=== PATIENT | female | born 1950 | race Caucasian/White ===

== ENCOUNTER 2024-08-04 11:21 | Outpatient (REF) | payer MEDICARE, OTHER, SELFPAY | END 2024-08-04 11:22 | disposition home or self-care (01) | LOC: LAB 11:21 | PROVIDERS: PCP Family Medicine; Visit Provider Internal Medicine | DX: E27.9 Disorder of adrenal gland, unspecified (principal) | CPT/HCPCS: 36415; 82530; 82570 ==

== ENCOUNTER 2024-09-08 19:38 | Outpatient (OUT) | payer MEDICARE, OTHER, SELFPAY | END 2024-09-08 19:39 | disposition home or self-care (01) | LOC: SLEEP 20:00 | PROVIDERS: PCP Nurse Practitioner Family; Visit Provider Nurse Practitioner Family | DX: G47.33 Obstructive sleep apnea (adult) (pediatric) (principal) | CPT/HCPCS: 95811 ==

== ENCOUNTER 2025-04-21 16:01 | Emergency (ER) | payer MEDICARE, SELFPAY ==
[2025-04-21] VITALS (52 sets, daily range): BP systolic 129–191; BP diastolic 46–109; PULSE 78–118; TEMP 37.1; O2SAT 91–100; BMI 44.8
--- NOTE | 2025-04-21 16:26 | ECG_ITS ---
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 Measurements Intervals [place] Rate: 111 P: -[phone] [place]: -92453 QRS: 164 QRSD: 76 T: 8 QT: 290 QTc: 355 Interpretive Statements JUNCTIONAL TACHYCARDIA INCOMPLETE RIGHT BUNDLE BRANCH BLOCK 3114 Cannot rule out anterior myocardial infarction, age undetermined 7300 Indeterminate axis 8102 Low QRS voltage in chest leads 8305 Short QTc interval 9150 abnormal ECG Compared to ECG 10/21/2017 06:41:55 Sinus rhythm no longer present Electronically Signed On 04-21-2025 18:14:59 EST by RYAN ARMENDARIZ M.D.
--- NOTE | 2025-04-21 16:27 | XR_ITS ---
The [address] [address] Patient Name: KENNY YAÑEZ MRN: [id number] date: 1950 Sex: F Assigned Patient Location: ED.MAIN Current Patient Location: ED.MAIN Accession/Order Number: [id number] Exam Date: 04/21/2025 17:00 Report Date: 04/21/2025 17:17 At the request of: JUVENAL DENNEY MD Procedure: XR chest 1V XR chest 1V 04/21/2025 5:10 PM SIGNS AND SYMPTOMS: Weakness PROTOCOL: Frontal radiograph of the chest COMPARISON: None FINDINGS: The trachea is midline. Atherosclerotic changes are present in the aortic arch. There is cardiomegaly with perihilar vascular prominence, interstitial prominence, and bilateral airspace opacities in a basal to apical gradient. The bony thorax is intact. Degenerative changes are noted in the shoulders and thoracic spine. XR/XR chest 1V IMPRESSION: Findings suggest congestive heart failure. Impression dictated by: Christopher Garcia M.D. 04/21/2025 5:17 PM Dictation Location: [place] [address] Electronically authenticated by: [id number] Y Date: 04/21/2025 17:17
--- NOTE | 2025-04-21 16:34 | ED.GENADUL1 ---
HPI HPI - General Adult General Chief complaint: Recheck/Abnormal Lab/Rx Stated complaint: VOMITING, LIGHT HEADED, 02 VERY LOW, RETAINING FLU Time Seen by Provider: 04/21/25 16:21 Source: patient Mode of arrival: walk-in Limitations: no limitations History of Present Illness HPI narrative: The patient is a 74-year-old female presented to the ER with a plaint of few days history of having lightheadedness , no appetite no nausea no vomiting at the moment although initially in triage she mentioned some nausea but right now she is saying that she have a great appetite, patient had no chest pain at any time but she does have increasing bilateral leg edema for the last few days No shortness of breath no coughing Mentioned that sometimes she feels that she is going to pass out and she have to be lowered to the floor when she is trying to move around Related Data Home Medications ?Medication ?Instructions ?Recorded ?Confirmed aspirin 81 mg capsule 81 mg PO DAILY 04/21/25 04/21/25 cholecalciferol (vitamin D3) 125 125 mcg PO DAILY 04/21/25 04/21/25 mcg (5,000 unit) capsule donepezil 10 mg tablet 10 mg PO .qhs 04/21/25 04/21/25 ferrous sulfate 325 mg (65 mg 325 mg PO DAILY 04/21/25 04/21/25 iron) tablet,delayed release losartan 100 1 tab PO DAILY 04/21/25 04/21/25 mg-hydrochlorothiazide 25 mg tablet mecobalamin-levomefolate 1 tab PO BID 04/21/25 04/21/25 calcium-pyridoxal phos 2 mg-3 mg-35 mg tablet metformin 500 mg tablet,extended 500 mg PO DAILY 04/21/25 04/21/25 release 24 hr omega 6-sxz-ork-fish oil 1,000 mg 1 cap PO DAILY 04/21/25 04/21/25 (120 mg-180 mg) capsule (Fish Oil) polyethylene glycol 3350 17 8.5 g PO .3 times per week PRN 04/21/25 04/21/25 gram/dose oral powder (ClearLax) constipation rivaroxaban 20 mg tablet (Xarelto) 20 mg PO Q24H 04/21/25 04/21/25 vitamin B12 1,000 mcg-folic acid tab sublingual 04/21/25 400 mcg sublingual tablet Allergies Allergy/AdvReac Type Severity Reaction Status Date / Time acetaminophen (From Percocet) Allergy Intermediate Vomiting Verified 04/21/25 16:08 oxycodone (From Percocet) Allergy Intermediate Vomiting Verified 04/21/25 16:08 Review of Systems ROS Status of ROS 10 or more systems reviewed and unremarkable except as noted in history and below [facility] Medical History (Updated 04/21/25 @ 18:33 by Nelly Barton MD) Hyperlipidemia ?E78.5 - Hyperlipidemia, unspecified (ICD-10) Hypertension ?I10 - Essential (primary) hypertension (ICD-10) Hip replacement planned Surgical History (Updated 04/21/25 @ 16:14 by Yaz Martinez RN) History of bowel resection ?Z90.49 - Acquired absence of other specified parts of digestive tract (ICD-10) Social History Little interest or pleasure in doing things: not at all Feeling down, depressed, or hopeless: not at all Exam Narrative Exam Narrative: Nurses notes and vital signs reviewed and patient is not hypoxic. General: Well-appearing and in no apparent distress. Skin: Warm, dry, no pallor noted. No rash. Head: Normocephalic, atraumatic. Neck: Supple, non-tender. Cardiovascular: Regular Rate and Rhythm without murmur, gallop or rub. Respiratory: No accessory muscle use or respiratory distress. Lungs decreased air entry bilaterally with distant breathing sound Musculoskeletal: normal ROM, no calf or popliteal tenderness, 1+ pitting edema bilaterally GI: Abdomen is soft, non-distended. Normal bowel sounds. No masses appreciated. No tenderness to palpation. No rebound, guarding, or rigidity noted. Neurological: A&O x4. No cranial nerve dysfunction observed. Constitutional Vital Signs, click to edit/add: Last Vital Signs Temp 98.7 F 04/21/25 16:08 Pulse 95 H 04/21/25 18:30 Resp 20 04/21/25 18:30 BP 151/74 H 04/21/25 16:31 Pulse Ox 96 04/21/25 18:30 O2 Del Method Room Air 04/21/25 16:08 Course Vital Signs Vital signs: Vital Signs Temperature 98.7 F 04/21/25 16:08 Pulse Rate 117 H 04/21/25 16:08 Respiratory Rate 18 04/21/25 16:08 Blood Pressure 133/71 04/21/25 16:08 Pulse Oximetry 97 04/21/25 16:08 Oxygen Delivery Method Room Air 04/21/25 16:08 Temperature 98.7 F 04/21/25 16:08 Pulse Rate 95 H 04/21/25 18:30 Respiratory Rate 20 04/21/25 18:30 Blood Pressure 151/74 H 04/21/25 16:31 Pulse Oximetry 96 04/21/25 18:30 Oxygen Delivery Method Room Air 04/21/25 16:08 Medical Decision Making [facility] Narrative Medical decision making narrative: EKG upon arrival was showing some ST changes was a concern initially for ST elevation although it is not typical of STEMI The patient had also some T wave inversion in multiple leads this ST elevation was mostly in lead II and I There was no chest pain recorded by the patient any time but the chest x-ray shows significant congestion Patient was noted to be tachycardic mild exertion with a heart rate of 117 and 111 The patient CBC showed no acute pathology except for mild leukocytosis of 14 and the chemistry was showing, BNP above 800 with no acute kidney injury It was noted that the lactic acid which I obtained because the patient episodic tachycardia on exertion was elevated but with the patient picture of acute congestive heart failure especially with the patient have no history of congestive heart failure before no concern right now for hydration right now the patient will be started to be diuresed with 20 of Lasix IV I did discuss the case with radiologist in [facility] and after discussing the results of the EKG he did recommend that the patient be transferred to [facility] for further cardiac workup The patient agreeable of this transfer Was noted that the patient takes Xarelto but she does not have any history of A-fib she does have a history of ischemic stroke The patient care discussed with Dr. Hennessy and he accepted the patient Lab Data Labs: Lab Results 04/21/25 04/21/25 Range/Units 16:32 18:05 WBC 14.5 H (4.0-11.0) 10^3/uL RBC 4.63 (4.20-5.40) 10^6/uL Hgb 14.2 (12.0-16.0) g/dL Hct 43.5 (36.0-48.0) % MCV 94.0 (81.0-99.0) fL MCH 30.7 (26.7-34.0) pg MCHC 32.6 (29.9-35.2) g/dL RDW 13.5 (11.0-15.0) % Plt Count 333 (150-450) 10^3/uL MPV 10.0 (9.5-13.5) fL Neut % (Auto) 76.0 H (43.0-75.0) % Lymph % (Auto) 13.1 L (20.5-60.0) % [place] % (Auto) 9.0 (1.7-12.0) % Eos % (Auto) 1.3 (0.9-7.0) % Baso % (Auto) 0.3 (0.2-2.0) % Neut # (Auto) 11.0 H (1.4-6.5) 10^3/uL Lymph # (Auto) 1.9 (1.2-3.8) 10^3/uL [place] # (Auto) 1.3 H (0.3-0.8) 10^3/uL Eos # (Auto) 0.2 (0.0-0.7) 10^3/uL Baso # (Auto) 0.1 (0.0-0.1) 10^3/uL Abs Immat Gran (auto) 0.05 H (0.00-0.03) 10^3/uL Imm/Tot Granulo (auto) 0.3 (0.0-0.5) % PT 14.0 H (9.0-11.6) sec INR 1.36 Sodium 137 (136-145) mmol/L Potassium 4.1 (3.5-5.1) mmol/L Chloride 102 (98-107) mmol/L Carbon Dioxide 29.9 (21.0-32.0) mmol/L Anion Gap 9.2 BUN 22.0 H (7.0-18.0) mg/dL Creatinine 1.03 H (0.55-1.02) mg/dL Est GFR ( Amer) >60 (>=60 mL/min/1.73m^2) Est GFR (Non-Af Amer) 52 L (>=60 mL/min/1.73m^2) BUN/Creatinine Ratio 21.4 Glucose 103 (74-106) mg/dL Lactate 3.1 H* (0.4-2.0) mmol/L Calcium 9.4 (8.5-10.1) mg/dL Magnesium 1.9 (1.8-2.4) mg/dL Total Bilirubin 0.3 (0.2-1.0) mg/dL AST 13 L (15-37) U/L ALT 22 (14-59) U/L Alkaline Phosphatase 91 (46-116) U/L Troponin I High Sens 15.6 (4.0-51.3) pg/mL NT-Pro-B Natriuret Pep 825.0 (<=1800.0) pg/mL Total Protein 7.4 (6.4-8.2) g/dL Albumin 3.4 (3.4-5.0) g/dL Globulin 4.0 g/dL Albumin/Globulin Ratio 0.9 Urine Color Lt. yellow (YELLOW) Urine Clarity Clear (CLEAR) Urine pH 6.0 (5.0-9.0) Ur Specific [place] 1.020 (1.005-1.025) Urine Protein Negative (NEG/TRACE) mg/dL Urine Glucose (UA) Negative (NEGATIVE) mg/dL Urine Ketones Negative (NEGATIVE) mg/dL Urine Occult Blood Small A (NEGATIVE) Urine Nitrite Positive A (NEGATIVE) Urine Bilirubin Negative (NEGATIVE) Urine Urobilinogen 0.2 (0.2-1.0) EU/dL Ur Leukocyte Esterase Small A (NEGATIVE) Urine RBC 0-2 (0-2) #/HPF Urine WBC 2-5 A (NONE SEEN) #/HPF Ur Squamous Epith Cells Few A (NONE/RARE) #/LPF Urine Crystals None seen (None Seen) #/HPF Urine Bacteria Moderate A (NONE SEEN) #/HPF Urine Casts None seen (NONE SEEN) #/LPF Urine Mucus None seen (NONE SEEN) Ur [place] [place] Chief Complaint: Recheck/Abnormal Lab/Rx Clinical Impression: Acute CHF (congestive heart failure), Pulmonary edema, Dizziness, Acute electrocardiogram changes, Leg edema Prescriptions / Home Meds: No Action Xarelto 20 mg tablet 20 mg PO Q24H metformin 500 mg tablet extended release 24 hr 500 mg PO DAILY mecobal-levomefolat Ca-B6 phos 2-3-35 mg tablet 1 tab PO BID donepezil 10 mg tablet 10 mg PO .qhs losartan-hydrochlorothiazide 100-25 mg tablet 1 tab PO DAILY ferrous sulfate 325 mg (65 mg iron) tablet,delayed release (DR/EC) 325 mg PO DAILY cholecalciferol (vitamin D3) 125 mcg (5,000 unit) capsule 125 mcg PO DAILY aspirin 81 mg capsule 81 mg PO DAILY vitamin J08-[id number] acid 1,000-400 mcg tablet, sublingual sublingual omega 6-xnn-hna-fish oil [Fish Oil] 1,000 (120-180) mg capsule 1 cap PO DAILY polyethylene glycol 3350 [ClearLax] 17 gram/dose powder 8.5 g PO .3 times per week PRN (Reason: constipation) Print Language: French Referrals: Loli Garcia NP [Primary Care Provider] - 1 week
[2025-04-21 16:43] LABS: Hematocrit 43.5 % (36.0-48.0); Hemoglobin 14.2 g/dL (12.0-16.0); Immature Granulocytes Abs Auto 0.05 10^3/uL (0.00-0.03); Immature Granulocytes Pct Auto 0.3 % (0.0-0.5); Lymphocytes Absolute Auto 1.9 10^3/uL (1.2-3.8); Mean Corpuscular HGB Conc 32.6 g/dL (29.9-35.2); Mean Corpuscular Hemoglobin 30.7 pg (26.7-34.0); Mean Corpuscular Volume 94.0 fL (81.0-99.0); Platelet Count 333 10^3/uL (150-450); Red Blood Count 4.63 10^6/uL (4.20-5.40); White Blood Count 14.5 10^3/uL (4.0-11.0)
[2025-04-21 16:53] LABS: Magnesium 1.9 mg/dL (1.8-2.4)
--- OUTSIDE RECORDS SUMMARY | 2025-04-21 16:54 | XMS_ITS | Clinical Summary ---
Author Organization [facility] Address [address] [place] [address] Care Team Providers Care Sales Account Executive Name Role Phone Miguel Ángel Sanderson MD Primary Care Provider [phone] Miguel Ángel Sanderson MD Unavailable [phone] Norah Aden RN Unavailable [phone] Allergies Active AllergyReactionsCriticalityNoted DateCommentsAcetaminophenGI intolerance 11/19/20240325Enyhvkfcb84/18/2025 Other Reaction(s): Nausea Oxycodone-AcetaminophenDizziness,Nausea Only,GI wmujcaffuql74/20/2016 Other Reaction(s): GI Upset, nausea, nausea, dizziness Other reaction(s): GI Upset Medications MedicationSigDispense QuantityRefillsLast FilledStart DateEnd DateStatus fish oil ([place]-3) 500 MG capsule Active aspirin 81 MG EC tablet 1 (one) time each day at the same timeActive Blood Glucose Monitoring Suppl (ONE TOUCH ULTRA 2) w/Device kit 02/28/2023ctive albuterol HFA 90 mcg/act inhaler Indications:Mild intermittent asthma without complication (HCC)Inhale 2 puffs every 4 (four) hours if needed for wheezing 18 g 11011/10/2023ctive ferrous sulfate 325 (65 Fe) MG EC tablet 05/04/2024ctive omeprazole (PriLOSEC) [address] capsule Take 40 mg by mouth04/28/2024ctive polyethylene glycol, PEG, 3350 (Miralax) 17 g packet Take by mouthActive ascorbic acid (Vitamin C) 500 MG ER capsule Take 500 mg by mouth DailyActive cyanocobalamin (Vitamin B-12) 1000 MCG tablet Take 1,000 mcg by mouth DailyActive donepezil (Aricept) 10 MG tablet Indications:Essential hypertensionTAKE 1 TABLET BY MOUTH EVERYDAY AT BEDTIME 90 tablet 5Active glucose blood test strip Indications:Type 2 diabetes mellitus without complication, without long-term current use of insulin (HCC)Use daily 100 each 1205//179942/6Active Lancets 30G misc Indications:Type 2 diabetes mellitus without complication, without long-term current use of insulin (HCC)1 each Daily in the Morning 100 each 3055Active losartan-hydroCHLOROthiazide (Hyzaar) 100-25 MG tablet Indications:Essential hypertensionTAKE 1 TABLET BY MOUTH EVERY DAY 90 tablet 5Active Additional Information Patient taking differently:1 tablet Oral Daily,(No times of day reported), Reported on 03/16/2025 cholecalciferol (Vitamin D-3) 125 MCG (5000 UT) capsule Indications:Hypovitaminosis DTAKE 1 CAPSULE BY MOUTH DAILY 90 capsule 5Active Additional Information Patient taking differently:125 mcg Oral Daily,(No times of day reported), Reported on 03/16/2025 rivaroxaban (Xarelto) 20 MG tablet Indications:Paroxysmal atrial fibrillation (HCC)TAKE 1 TABLET BY MOUTH EVERY DAY 90 tablet 5Active ipratropium-albuterol (Duo-Neb) 0.5-2.5 mg/3 mL nebulizer solution Indications:Panlobular emphysema (HCC)Take 3 mL by nebulization in the morning and 3 mL at noon and 3 mL in the evening and 3 mL before bedtime. 1080 mL /6Active fluocinonide (Lidex) 0.05 % external solution Indications:Other seborrheic dermatitisApply to affected areas on the scalp, once a day when flared, 30 day supply 60 mL tive hydrocortisone 2.5 % ointment Indications:Other seborrheic dermatitisApply thin layer to affected areas on the ears and face, twice a day as needed for flares, 30 day supply 20 g tive metFORMIN XR (Glucophage-XR) 500 MG 24 hr tablet Indications:Type 2 diabetes mellitus without complications (HCC)TAKE 1 TABLET BY MOUTH EVERY DAY WITH EVENING MEAL 90 tablet 5Active Active Problems ProblemNoted DateDiagnosed DateMass of satndid40/14/2025Chronic anticoagulation 11/15/2024Multiple thyroid /19/2025Chronic /28/2023Mass of colon11/29/2022cquired coagulation factor deficiency ([facility])10/01/2022 Asymmetrical sensorineural hearing loss10/01/2022ilateral primary osteoarthritis of knee10/01/20226076Gfpqtwbkarji46/30/2023Factor V Leiden ([facility]) 10/01/2022Idiopathic progressive lelrylahoeztwn49/30/2023Mild episode of recurrent major depressive fihkzcuk93/30/2023Mild intermittent asthma without wlkitxfnqcrv97/30/2023Onychomycosis due to dfucopptpfob81/30/2023OSA (obstructive sleep apnea)10/01/2022Osteoarthritis of knee10/01/2022Other chronic pain10/01/2022ain in right foot10/01/2022aroxysmal atrial fibrillation 10/01/2022ure jbavowqajaatmkkcmmgh19/30/2023Type 2 diabetes mellitus without complication, without long-term current use of ycffgkb3110/01/2022Uncompensated short term memory icugvdq4210/01/2022Shortness of otaefj7912/29/2020MI 45.0-49.9, adult08/10/2018Chronic fatigue gxhjtedo05/13/2019Cerebrovascular accident (CVA) due to thrombosis of left middle cerebral dtqrxb9703/10/2018Other hyperlipidemia 03/10/2018PAI-1 4G/5G /06/2018APC resistance ([facility])03/10/2018Status post placement of implantable loop /07/2018Acute embolic stroke 10/21/2017 Encounters DateTypeDepartmentCare HvhdPwndwjrusgr90/18/2025Patient Outreach [facility] [address] [place] [address] Norah Aden, RN 04/15/2025Patient Outreach [facility] [address] [place] [address] Norah Aden, RN 04/13/2025Telephone [facility] [address] [place] [address] Toño Zambrano, DO Gel Jqnxbhbmv74/10/2025Telephone [facility] [address] [place] [address] Toño Zambrano, DO 03/17/2025[facility]reach [facility] [address] [place] [phone] Norah Aden, YADIEL 03/16/2025 2:50 PM ESTOffice Visit [facility] [address] [place] [address] Lizet Mcgill PA Other seborrheic dermatitis (Primary Dx); Prurigo ojxhjlghh59/12/2025amboo flowsheet [facility] [address] [place] [address] Lizet Mcgill PA 03/16/20250618Bkxwce71/24/2025 10:45 AM EDTProcedure Visit [facility] [address] [place] [address] Aquilino Davey, DPKat Type 2 diabetes mellitus with diabetic neuropathy, without long-term current use of insulin (HCC) (Primary Dx); Itdbyshqwgdek54/24/2025amboo flowsheet [facility] [address] [place] [address] Aquilino Davey DPM 02/25/20257070Oktbct20/07/2025Patient Outreach [facility] [address] [place] [phone] Norah dAen, YADIEL 01/31/2025 8:30 AM EDTClinical Support [facility] [address] [facility] [address] [place] [address] Dustin, Petrona A, CCC-A Bilateral hearing loss, unspecified hearing loss type (Primary Dx)01/31/2025 Bamboo flowsheet [facility] [address] [place] [address] Petrona Chan CCC-A 01/29/2025Refill [facility] [address] [place] [address] Miguel Ángel Sanderson MD Type 2 diabetes mellitus without complications ([facility])01/24/2025 12:30 PM EDT Office Visit [facility] [address] [place] [address] Lizet Mcgill PA Other seborrheic dermatitis (Primary Dx)01/24/2025amboo flowsheet [facility] [address] [place] [address] Lizet Mcgill PA 01/24/2025Travelfrom Last 3 Months Immunizations ImmunizationAdministration DatesNext DueInfluenza Whole03/03/2007Influenza, High Dose Seasonal, Preservative Free02/04/2018Influenza, High-dose Seasonal, Quadrivalent, Preservative Free03/11/2023,03/19/2022,04/04/2021,04/05/2020, 03/08/2019Influenza, Recombinant, injectable, preservative free02/26/2024 Influenza, seasonal, injectable, preservative free01/28/2014Influenza, seasonal, intradermal, preservative free02/15/2016Moderna Bivalent Booster Vaccination 2Pneumococcal Conjugate PCV 1309Pneumococcal Conjugate PCV 20 4Pneumococcal Polysaccharide QVUI5559,01/07/20151276NXBW-YQG-9 (COVID-19) vaccine, mRNA, spike protein, LNP, PF, 50 mcg/0.5 mL03/11/2023 Family History Medical HistoryRelationNameCommentsHeart diseaseFatherHypertensionFatherHeart diseaseMotherHypertensionMotherDiabetesSiblingHypertensionSiblingStrokeSibling RelationNameStatusCommentsFatherDeceasedMaternal GrandfatherDeceasedMaternal GrandmotherDeceasedMotherDeceasedPaternal GrandfatherDeceasedPaternal GrandmotherDeceasedSiblingAliveSonAlive Social History Tobacco UseTypesPacks/DayYears UsedDateSmoking Tobacco: Every DayCigarettes Passive Smoke Exposure: CurrentSmokeless Tobacco: Never Tobacco Cessation:Ready to Q uit: Not Asked; Counseling Given: Not Answered Alcohol UseStandard Drinks/WeekCommentsNever0 (1 standard drink = 0.6 oz pure alcohol)caffeine: 2-3 cups per day coffeePHQ-2AnswerDate RecordedPatient Health Questionnaire-2 Vifkk167/24/2024CommentsNoSex and Gender Information ValueDate RecordedSex Assigned at BirthNot on fileLegal FsxHtyxnc59/15/2023 7:27 PM EDTGender IdentityNot on fileSexual OrientationNot on file Last Filed Vital Signs Vital SignReadingTime TakenCommentsBlood Zsbjdcsu937/6010 10:57 AM EDT Xwsjy32940/24/2025 10:57 AM LPTIjxyrinjvie93 ??C (98.6 ??F)01/14/2025 11:20 AM EDTRespiratory Jgil025607/27/2024 10:20 AM EDTOxygen Waemrkpejd17%01/14/2025 11:20 AM EDTInhaled Oxygen Concentration--Unyrkr241 kg (236 lb 3.2 oz)02/25/2025 10:57 AM QALKushbu271.5 cm (5' 2 )02/25/2025 10:57 AM EDTBody Mass Index43. 10:57 AM EDT Plan of Treatment DateTypeDepartmentCare Team (Latest Contact Info)Nansgythtpd66/23/2025 10:45 AM ESTOffice Visit [facility] [address] [facility] [place] [address] Toño Zambrano, DO [address] [place] [address] 05/09/2025 10:45 AM ESTOffice Visit [facility] [address] [place] [address] Miguel Ángel Sanderson MD [address] [place] [address] 05/10/2025 10:30 AM ESTProcedure Visit [facility] [address] [place] [address] Aquilino Davey, DPM [address] [place] [address] 07/26/2025 10:30 AM EDTOffice Visit [facility] [place] [facility] [address] [place] [address] Manuel Antoine MD [address] [place] [address] 03/20/2026 1:40 PM ESTOffice Visit [facility] [address] [place] [address] Lizet Mcgill, GERARDO [address] [place], [place] [address] Health MaintenanceDue DateLast DoneCommentsDiabetes: Hemoglobin A1C12/03/2024 09/02/2024, 06/03/2024, 02/26/2024, Additional history existsCOVID-19 Vaccine ( season), 03/19/2022, 08/08/2020, Additional history existsInfluenza Vaccine (#1), 03/11/2023, 03/19/2022, Additional history existsDiabetes: Urine Protein Tlenrkmlc05/16/2026 09/17/2024, 3Diabetes: Retinopathy Vcuuvosui33, 1913OavdbcwjhbvZckzxsycwmuu91/16/2014Colorectal Cancer Screening LpxncxqugrlcExrmlhmieItkrsgjtmomw05/27/2022, 04/06/2018, 03/31/2018Pneumococcal Vaccine: 65+ IvgyvJzgkgkfmy75/24/2024, 07/15/2018, 01/07/2015, Additional history existsCT ColonographyDiscontinuedFIT-DNADiscontinuedFITDiscontinuedFOBT DiscontinuedSigmoidoscopyDiscontinued Procedures Procedure NamePriorityDate/TimeAssociated DiagnosisCommentsCOLOR FUNDUS PHOTOGRAPHY - OU - BOTH LUTPRfgeutu34/29/2025 2:11 PM EDTMICROALBUMIN / CREATININE URINE EIHKGQruqzpy66/16/2025 8:30 AM EDT Type 2 diabetes mellitus without complication, without long-term current use of insulin ([facility]) POCT GLYCATED HEMOGLOBIN, ODOPQTkuuocm37/01/2025 12:39 PM EDT Type 2 diabetes mellitus without complication, without long-term current use of insulin ([facility]) BI MAMMOGRAM SCREENING TOMOSYNTHESIS SVXWRQWKSZcsbbln02/27/2022 12:00 PM EDT Essential (primary) hypertension Obstructive sleep apnea (adult) (pediatric) Morbid (severe) obesity due to excess calories ([facility]) Bilateral primary osteoarthritis of knee Body mass index (BMI) 45.0-49.9, adult ([facility]) Other amnesia Encounter for screening mammogram for malignant neoplasm of breast HMBKBJFMJYRNyuaszi94/16/2014 12:00 PM EDT from Last 3 Months or Most Recently Relevant to Health Maintenance Results * Color Fundus Photography - OU - Both Eyes (12/31/2024 2:11 PM EDT)Anatomical RegionLateralityModalityHeadFundus Photography Narrative Authorizing ProviderResult TypeResult StatusNoms Provider Unallocated MDOPH PHOTOGRAPHYFinal Result * Microalbumin / creatinine urine ratio (09/17/2024 8:30 AM EDT)ComponentValue Ref RangeTest MethodAnalysis TimePerformed AtPathologist SignatureCreat Ur92.3 Not Estab. mg/dLLABCORPAlbumin Ur5.1Not Estab. ug/mLLABCORPAlb/Creat Ratio Urine60 - 29 mg/g creatLABCORPComment: ? Normal: ?0 - ??29 ? Moderately increased: 30 - 300 Severely increased: >300 Specimen (Source)Anatomical Location / LateralityCollection Method / Volume Collection TimeReceived TimeUrineUrine specimen obtained by clean catch procedure / Ssxoyti1909/17/2024 8:30 AM EDT09/17/2024omment:URINE, CLEAN CATCH Narrative [facility] - 09/18/2024 8:35 AM EDT Performed at: [address] [place] [address] ??[phone] Denture Packer: Adria Chavez PhD, Phone: ??[phone] Authorizing ProviderResult TypeResult StatusPeter Mayra MATTHEW URINE ORDERABLESFinal ResultPerforming OrganizationAddressCity/State/[facility] CodePhone Number [facility] * POCT glycated hemoglobin, total docked device (09/02/2024 12:39 PM EDT) ComponentValueRef RangeTest MethodAnalysis TimePerformed AtPathologist SignatureHemoglobin A1C6.4Specimen (Source)Anatomical Location / Laterality Collection Method / VolumeCollection TimeReceived IihoMjobb79/01/2025 12:39 PM EDT Narrative Authorizing ProviderResult TypeResult StatusPeter Mayra Sanderson [facility] TEST ENTER/EDIT ORDERABLESFinal Result * Bilateral screening mammogram with tomosynthesis (10/29/2021 12:00 PM EDT) Anatomical RegionLateralityModalityBreastBilateralMammographySpecimen (Source) Anatomical Location / LateralityCollection Method / VolumeCollection Time Received Time Narrative 10/29/2021 12:00 PM EDT PERFORMED AT [facility] LOCATION:[id number] see report Procedure Note CONVERSION, GENERIC - 11/08/2022 PERFORMED AT [facility] LOCATION:[id number] see report Authorizing ProviderResult TypeResult StatusPeter Mayra Sanderson MDIMG BI PROCEDURES Final Result * Colonoscopy (01/18/2014 12:00 PM EDT)Anatomical RegionLateralityModality EndoscopySpecimen (Source)Anatomical Location / LateralityCollection Method / VolumeCollection TimeReceived Time01/18/2014 12:00 PM EDT Narrative 01/18/2014 12:00 PM EDT PERFORMED AT [facility] LOCATION:[id number] Polyps Procedure Note CONVERSION, GENERIC - 09/19/2022 PERFORMED AT [facility] LOCATION:[id number] Polyps Authorizing ProviderResult TypeResult StatusPeter Mayra Sanderson MDENDOSCOPY PROCEDURE ORDERABLESFinal Result from Last 3 Months or Most Recently Relevant to Health Maintenance Insurance Care Teams Team MemberRelationshipSpecialtyStart DateEnd Date Miguel Ángel Sanderson MD [address] [place] [address] [facility] - [facility]Family [facility] Miguel Ángel Sanderson MD [address] [place] [address] PCP - ACO [facility]07/04/23 Norah Aden RN [address] [place] [address] Registered NurseEmory University [facility]10/09/23
--- OUTSIDE RECORDS SUMMARY | 2025-04-21 16:54 | XMS_ITS | Encounter Summary ---
Author Organization [facility] Address [address] [facility] [place] [address] Care Team Providers Care Animal Control Specialist Name Role Phone Miguel Ángel Sanderson MD Primary Care Provider [phone] Miguel Ángel Sanderson MD Unavailable [phone] Norah Aden RN Unavailable [phone] Encounter Details DateTypeDepartmentCare Team (Latest Contact Info)Qykrovynndu93/10/2025Telephone [facility] [address] [place] [address] Toño Zambrano, [address] [place] [address] Social History Tobacco UseTypesPacks/DayYears UsedDateSmoking Tobacco: Every DayCigarettes Passive Smoke Exposure: CurrentSmokeless Tobacco: NeverAlcohol UseStandard Drinks/WeekCommentsNever0 (1 standard drink = 0.6 oz pure alcohol)caffeine: 2-3 cups per day coffeePHQ-2AnswerDate RecordedPatient Health Questionnaire-2 Score0 4CommentsNoSex and Gender InformationValueDate RecordedSex Assigned at BirthNot on fileLegal ZreOcsqhh04/15/2023 7:27 PM EDTGender Identity Not on fileSexual OrientationNot on filedocumented as of this encounter Miscellaneous Notes * Telephone Encounter - Dorina Smith - 04/13/2025 11:11 AM EST error documented in this encounter Plan of Treatment DateTypeDepartmentCare Team (Latest Contact Info)Qksnpsduhtj15/23/2025 10:45 AM ESTOffice Visit [facility] [place] [facility] [address] [address] Toño Zambrano, DO [address] [place] [address] 05/09/2025 10:45 AM ESTOffice Visit [facility] [address] [place] [address] Miguel Ángel Sanderson MD [address] [place] [address] 05/10/2025 10:30 AM ESTProcedure Visit [facility] [address] [place] [address] Aquilino Davey, DPM [address] [place], [place] [address] 07/26/2025 10:30 AM EDTOffice Visit [facility] [address] [place] [address] Manuel Antoine MD [address] [place] [address] 03/20/2026 1:40 PM ESTOffice Visit [facility] [address] [place] [address] Lizet Mcgill, PA [address] [place] [address] documented as of this encounter Visit Diagnoses Not on filedocumented in this encounter Additional Health Concerns AssessmentNoted TimePHQ-9 Depression Total Score: 8:00 AM EDT documented as of this encounter Care Teams Team MemberRelationshipSpecialtyStart DateEnd Date Miguel Ángel Sanderson MD [address] [place] [address] PCP - GeneralFacoly Medicine10/01/22 Miguel Ángel Sanderson MD [address] [place] [address] PCP - [facility]07/04/23 Norah Aden, YADIEL [address] [place] [address] Registered NurseFaguardian hospital Medicine10/09/23documented as of this encounter
--- OUTSIDE RECORDS SUMMARY | 2025-04-21 16:54 | XMS_ITS | Clinical Summary ---
Author Organization [facility] Address [id number] [address] [place] [address] Care Team Providers Care Supervisor Typesetting Name Role Phone Miguel Ángel Sanderson MD Primary Care Provider [phone] Allergies Active AllergyReactionsCriticalityNoted DateCommentsOxycodone-Acetaminophen Hpvath8908/23/2015 Other reaction(s): GI Upset Medications MedicationSigDispense QuantityRefillsLast FilledStart DateEnd DateStatus ALBUTEROL SULFATE INHL Inhale as needed.Active zidcx-6-fqj-uxu-tgl-autz oil 1,050-1,200 mg capsule Take 1 capsule by mouth.Active aspirin 81 mg Take 1 tablet (81 mg total) by mouth in the morning.Active XARELTO 20 mg tablet tablet TAKE 1 TABLET BY MOUTH EVERY DAY 30 tablet Active rfunlejip-L8-pgW71-algal oil (FOLTANX RF/MENTAX) 3 mg-35 mg-2 mg -90.314 mg capsule Take 1 capsule by mouth in the morning.Active donepeziL (ARICEPT) 5 mg tablet Take 1 tablet (5 mg total) by mouth nightly.Active losartan-hydroCHLOROthiazide (HYZAAR) 100-25 mg per tablet Take 1 tablet by mouth daily. 90 tablet ctive bisoprolol (ZEBETA) 5 mg tablet Indications:Paroxysmal atrial fibrillation (CMS-HCC),Essential hypertension, benignTAKE 1 TABLET BY MOUTH EVERY DAY 90 tablet ctive metFORMIN (GLUCOPHAGE) 500 mg tablet Take 1 tablet (500 mg total) by mouth in the morning and 1 tablet (500 mg total) before bedtime.Active acidophilus-pectin, citrus 25 million cell -100 mg tablet Take by mouth 3 (three) times a day with meals.Active Active Problems ProblemNoted DateDiagnosed DateShortness of kachhp711BMI 45.0-49.9, adult 08/10/2018Paroxysmal atrial pbznifmkaghy14/12/2018Status post placement of implantable loop lpfambdt41/07/2018Essential llvrtrjjqwav29/07/2018Observed sleep apnea12/09/2017Acute embolic rdjsjn0910/21/2017 Resolved Problems ProblemNoted DateDiagnosed DateResolved DateOther ukenogqyfgamyh62/07/2018 02/13/2018 Immunizations No known immunizations Family History Medical HistoryRelationNameCommentsNo Known ProblemsFatherNo Known Problems MotherRelationNameStatusCommentsFatherMother Social History Tobacco UseTypesPacks/DayYears UsedDateSmoking Tobacco: QneebrEehshobvxb5Qdtb: 10/21/2013Smokeless Tobacco: Never Tobacco Cessation:Counseling Given: Not Answered Alcohol UseStandard Drinks/WeekCommentsNo0 (1 standard drink = 0.6 oz pure alcohol)PHQ-2AnswerDate RecordedTotal Kmqcx270ChildcareAnswerDate UwspnkugOmcppkqubLlvaxjo23/06/2019EmploymentAnswerDate RecordedEmploymentUnknown 10/08/2018Hunger ScreeningAnswerDate RecordedWithin the past 12 months we worried whether our food would run out before we got money to buy more.Never True06/14/2022Within the past 12 months the food we bought just didn't last and we didn't have money to get more.Never True3Purpose - LifeAnswerDate RecordedPurpose and direction in ppywEttprhg12/13/2021CommentsNoSex and Gender InformationValueDate RecordedSex Assigned at BirthNot on fileLegal Sex Zunomx4710/21/2017 11:11 AM EDTGender IdentityNot on fileSexual OrientationNot on file Last Filed Vital Signs Vital SignReadingTime TakenCommentsBlood Qeibteyd688/6202 9:47 AM EST Eosdy780206/14/2022 9:47 AM KGEDemikmqqcde59.8 ??C (98.2 ??F)10/24/2017 7:59 PM EDTRespiratory Qpcv939410/24/2017 7:59 PM EDTOxygen Mylidvbusj79%06/14/2022 9:47 AM ESTInhaled Oxygen Concentration--Qquvcn340.5 kg (261 lb 4.8 oz)06/14/2022 9:47 AM GIPEittoc756 cm (5' 3 )06/14/2022 9:47 AM ESTBody Mass Index46.29 06/14/2022 9:47 AM EST Plan of Treatment Health MaintenanceDue DateLast DoneCommentsDepression Hzoubgzeu27/02/1961Tobacco Ytdistsbl57/02/1961TaP,Tdap and Td Vaccines (1 - Tdap)07/05/1967Zoster (Shingles) Vaccine (1 of 2)1998Fall Risk Mqeqsojpg83/02/2014RSV ( or age 60+ yrs) (1 - 1-dose 75+ series)4COVID-19 Vaccine (4 - 2024- season)5105/19/2021, 08/08/2020, 07/11/2020Influenza Fcmmhks1301/03/2025 03/19/2022, 04/04/2021, 04/05/2020, Additional history exists Medical Devices ImplantedTypeAreaManufacturerDevice IdentifierShelf Expiration DateModel / Serial / LotSys Crd Rvl Linq Rpl [id number] - [id number] - [id number] Implanted:Qty: 1 on 10/24/2017 [facility]Other ImplantMEDTRONIC CARD RHYTHM [id number]/30/2018LINQSYS / [id number] / Insurance Care Teams Team MemberRelationshipSpecialtyStart DateEnd Miguel Ángel Sanderson MD [facility]10/21/17
--- OUTSIDE RECORDS SUMMARY | 2025-04-21 16:54 | XMS_ITS | Clinical Summary ---
Author Organization [facility] Address [address] [place] [address] Care Team Providers Care Hardwood Floor Refinisher Name Role Phone Miguel Ángel Sanderson MD Primary Care Provider [phone] Hi Burr MD, PhD Unavailable [phone] Allergies Active AllergyReactionsCriticalityNoted DateCommentsOxycodone-AcetaminophenGI Upset08/23/2015 Medications MedicationSigDispense QuantityRefillsLast FilledStart DateEnd DateStatus Maud-3 1,050 mg, Fish Oil, 1,050-1,200 mg cap Take 1 capsule by mouth twice daily.Active ipratropium-albuterol (DUONEB) 0.5 mg-3 mg(2.5 mg base)/3 mL nebu Inhale 3 mL as instructed.Active ALBUTEROL SULFATE (PROAIR HFA INHALATION) Inhale as instructed.Active aspirin, enteric coated (ASPIRIN, ENTERIC COATED) 81 mg EC tablet Take 81 mg by mouth.Active albuterol HFA (PROVENTIL HFA) 90 mcg/actuation inhaler Inhale as instructed.Active atorvastatin (LIPITOR) 40 mg tablet Take 40 mg by mouth.Active bisoprolol (ZEBETA) 5 mg tablet Take 5 mg by mouth.02/13/2018Active rivaroxaban (XARELTO) 20 mg tablet Take 20 mg by mouth.02/13/2018Active losartan-hydrochlorothiazide (HYZAAR) 50-12.5 mg per tablet Take 1 tablet by mouth once daily. 09/15/2018Active donepezil (ARICEPT) 5 mg tablet TAKE 1 TABLET BY MOUTH EVERY DAY IN THE IVADSDU0809/10/2019Active Active Problems ProblemNoted DateDiagnosed DatePAI-1 4G/5G pkeqrxcb72/06/2018APC resistance 11/06/2018Cerebrovascular accident (CVA) due to thrombosis of left middle cerebral shsnxa5703/10/2018Paroxysmal atrial ozovfrpmllzh57/06/2018Essential ttmwqqsydpfq04/06/2018Other qvstisxhzvpwrs81/06/2018 Social History Tobacco UseTypesPacks/DayYears UsedDateSmoking Tobacco: ElaclwNzwjrorknx504 03/24/1980 - 03/24/2014Smokeless Tobacco: NeverAlcohol UseStandard Drinks/Week CommentsNo0 (1 standard drink = 0.6 oz pure alcohol)PHQ-2AnswerDate RecordedPHQ- 2 jzfro618Area Deprivation IndexAnswerDate RecordedNational Score (1- 100), lower number is lower riskNot on file04/12/2020State Score (1-10), lower number is lower riskNot on file04/12/2020Data from: https://www.neighborhoodatlas.medicine[facility].edu/. Last address used for calculationNot on file04/12/2020CommentsNoSex and Gender Information ValueDate RecordedSex Assigned at BirthNot on fileLegal UgpMtzjmv53/30/2014 11:33 AM EDTGender IdentityNot on fileSexual OrientationNot on file Last Filed Vital Signs Vital SignReadingTime TakenCommentsBlood Ibursyee694/75010/11/2019 2:41 PM EDT Xtqee96972/08/2020 2:41 PM ONJQmwklpjozdr75.5 ??C (97.7 ??F)10/11/2019 2:41 PM EDTRespiratory Qebo875810/11/2019 2:41 PM EDTOxygen Uzzslculbi14%10/11/2019 2:41 PM EDTInhaled Oxygen Concentration--Jtgtzc980.4 kg (245 lb 9.6 oz)10/11/2019 2:41 PM PBGFumjlp935.5 cm (5' 1.61 )10/11/2019 2:41 PM EDTBody Mass Index45.49 10/11/2019 2:41 PM EDT Plan of Treatment Health MaintenanceDue DateLast DoneCommentsAnxiety Jwqqxapia71/02/1967Depression Kzhhaqsxj24/02/1967Hepatitis C Lmbhbenuf67/02/1967DTaP,Tdap,Td Vaccine (1 - Tdap)07/05/1967Pneumococcal Vaccine: 50+ (1 of 1 - PCV)1998Shingrix Vaccine (1 of 2)1998Bone Density Lgkrtgjgc81/02/2014Diabetes Screening 2106/07/2018, 10/24/2017, 10/23/2017, Additional history existsRSV Vaccine (1 - 1-dose 75+ series)07/05/2023dvance Directive Laaqsilydt33/01/2025 Covid-19 Vaccine (1 - 2024- season)2025Influenza Vaccine (#1)2025 Insurance Care Teams Team MemberRelationshipSpecialtyStart DateEnd Date Miguel Ángel Sanderson MD PCP - GeneralFamily Medicine02/01/14 Hi Burr MD, PhD Primary Staff PhysicianCardiology07/21/18
--- OUTSIDE RECORDS SUMMARY | 2025-04-21 16:54 | XMS_ITS | Clinical Summary ---
Author Organization [facility] Address [address] [place] [address] Care Team Providers Care Light Bulb Tester Name Role Phone Unavailable Primary Care Provider Unavailabl e Social History Tobacco UseTypesPacks/DayYears UsedDateSmoking Tobacco: Never Assessed CommentsUnknownSex and Gender InformationValueDate RecordedSex Assigned at Not on fileLegal YviEwiubn28/26/2018 3:08 PM EDTGender IdentityNot on fileSexual OrientationNot on file Plan of Treatment Not on file
--- OUTSIDE RECORDS SUMMARY | 2025-04-21 16:54 | XMS_ITS | Encounter Summary ---
Author Organization [facility] Address [address] [place] [address] Care Team Providers Care Nurses Director Name Role Phone Miguel Ángel Sanderson MD Primary Care Provider Miguel Ángel Sanderson MD Unavailable [phone] Norah Aden RN Unavailable [phone] Encounter Details DateTypeDepartmentCare Team (Latest Contact Info)Qdjlmyitwfy11/18/2025Patient Outreach [facility] [address] [place] [address] Norah Aden, YADIEL [address] [place] [address] Social History Tobacco UseTypesPacks/DayYears UsedDateSmoking Tobacco: Every DayCigarettes Passive Smoke Exposure: CurrentSmokeless Tobacco: NeverAlcohol UseStandard Drinks/WeekCommentsNever0 (1 standard drink = 0.6 oz pure alcohol)caffeine: 2-3 cups per day coffeePHQ-2AnswerDate RecordedPatient Health Questionnaire-2 Score0 4CommentsNoSex and Gender InformationValueDate RecordedSex Assigned at BirthNot on fileLegal KkcLoboxy76/15/2023 7:27 PM EDTGender Identity Not on fileSexual OrientationNot on filedocumented as of this encounter Progress Notes * Norah Aden RN - 04/21/2025 1:40 PM EST VM received from ABHINAV Almazan. Reports she is seeing some changes in pt and attempted to get an apptwith provider, but nothing available. She is concerned with pt change in status, having increased HR, more sob, lower leg edema and sustained a fall yesterday while visiting her sister. Denies any injury with fall, but she is reporting noted increased weakness. Her BP is also a concern, low today 94/56. Advised likely an ER evaluation needed. CG Norah reports that is what the family wants, shespoke with dtr prior to magazine writer returning call. She will update when available. documented in this encounter Plan of Treatment DateTypeDepartmentCare Team (Latest Contact Info)Pscgoxplzoy85/23/2025 10:45 AM ESTOffice Visit [facility] [address] [place] [phone] Toño Zambrano, DO [address] [place] [address] 05/09/2025 10:45 AM ESTOffice Visit [facility] [address] [place] [phone] Miguel Ángel Sanderson MD [address] [place] [address] 05/10/2025 10:30 AM ESTProcedure Visit [facility] [address] [place] [phone] Aquilino Davey DPM [address] [place] [address] 07/26/2025 10:30 AM EDTOffice Visit [facility] [address] [place] [phone] Manuel Antoine MD [address] [place] [address] 03/20/2026 1:40 PM ESTOffice Visit [facility] [address] [place] [address] Lizet Mcgill, PA [address] [place] [address] documented as of this encounter Visit Diagnoses Diagnosis Type 2 diabetes mellitus without complication, without long-term current use of insulin (HCC)- Primary Cerebrovascular accident (CVA) due to thrombosis of left middle cerebral artery (HCC) Acute bilateral knee pain- Primary Primary osteoarthritis of both knees documented in this encounter Additional Health Concerns AssessmentNoted TimePHQ-9 Depression Total Score: 8:00 AM EDT documented as of this encounter Care Teams Team MemberRelationshipSpecialtyStart DateEnd Date Miguel Ángel Sanderson MD [address] [place] [address] PCP - GeneralFamily Medicine10/01/22 Miguel Ángel Sanderson MD [address] [place] [address] PCP - [facility]07/04/23 Norah Aden, [place]ADIEL [address] [place] [address] Registered NurseFamily Medicine10/09/23documented as of this encounter
--- OUTSIDE RECORDS SUMMARY | 2025-04-21 16:54 | XMS_ITS | Encounter Summary ---
Author Organization [facility] Address [address] [place] [address] Care Team Providers Care Patient Information Coordinator Name Role Phone Miguel Ángel Sanderson MD Primary Care Provider Miguel Ángel Sanderson MD Unavailable [phone] Norah Aden RN Unavailable Reason for Visit * ReasonOnset DateCommentsGel Hspjneknr74/10/2025 Encounter Details DateTypeDepartmentCare Team (Latest Contact Info)Sgemlvpguue64/10/2025Telephone [facility] [address] [place] [address] Toño Zambrano, DO [address] [place] [address] Gel Injection Social History Tobacco UseTypesPacks/DayYears UsedDateSmoking Tobacco: Every DayCigarettes Passive Smoke Exposure: CurrentSmokeless Tobacco: NeverAlcohol UseStandard Drinks/WeekCommentsNever0 (1 standard drink = 0.6 oz pure alcohol)caffeine: 2-3 cups per day coffeePHQ-2AnswerDate RecordedPatient Health Questionnaire-2 Score0 4CommentsNoSex and Gender InformationValueDate RecordedSex Assigned at BirthNot on fileLegal VsdCpmjfq85/15/2023 7:27 PM EDTGender Identity Not on fileSexual OrientationNot on filedocumented as of this encounter Miscellaneous Notes * Telephone Encounter - Stephanie Duque MA - 04/13/2025 2:01 PM EST Okay to start gel auth for patient. * Telephone Encounter - Dorina Smith - 04/13/2025 10:16 AM EST Patient home health nurse called and stated that the patient is in a lot of pain and would like to get gel injections started. She has an appointment on 04/26/25 for a mariel injection, but if gel injections get approved before then she would like to switch to that. FRANKY/XR/Mariel: 12/21/24 Last gel injection (gelone) : 01/2024 Dr Zambrano Patient B/L Knee OA documented in this encounter Plan of Treatment DateTypeDepartmentCare Team (Latest Contact Info)Mygrmrjmvnh02/23/2025 10:45 AM ESTOffice Visit [facility] [address] [place] [phone] Toño Zambrano, [address] [place] [address] 05/09/2025 10:45 AM ESTOffice Visit [facility] [address] [place] [phone] Miguel Ángel Sanderson MD [address] [place] [address] 05/10/2025 10:30 AM ESTProcedure Visit [facility] [address] [place] [address] Aquilino Davey DPM [address] [place] [address] 07/26/2025 10:30 AM EDTOffice Visit [facility] [address] [place] [address] Manuel Antoine MD [address] [place] [address] 03/20/2026 1:40 PM ESTOffice Visit [facility] [address] [place] [address] Lizet Mcgill, PA [address] [place] [address] documented as of this encounter Visit Diagnoses Not on filedocumented in this encounter Additional Health Concerns AssessmentNoted TimePHQ-9 Depression Total Score: 8:00 AM EDT documented as of this encounter Care Teams Team MemberRelationshipSpecialtyStart DateEnd Date Miguel Ángel Sanderson MD [address] [place] [address] PCP - GeneralFamily Medicine10/01/22 Miguel Ángel Sanderson MD [address] [place] [address] PCP - [facility]07/04/23 Norah Aden, RN [address] [place] [address] Registered NurseFamily Medicine10/09/23documented as of this encounter
--- OUTSIDE RECORDS SUMMARY | 2025-04-21 16:54 | XMS_ITS | Encounter Summary ---
Author Organization [facility] Address [address] [place] [address] Care Team Providers Care Utilization Review Rn Name Role Phone Miguel Ángel Sanderson MD Primary Care Provider Miguel Ángel Sanderson MD Unavailable [phone] Norah Aden RN Unavailable [phone] Encounter Details DateTypeDepartmentCare Team (Latest Contact Info)Zjfxggumdfg53/12/2025Patient Outreach [facility] [address] [place] [address] Norah Aden, YADIEL [address] [place] [address] Social History Tobacco UseTypesPacks/DayYears UsedDateSmoking Tobacco: Every DayCigarettes Passive Smoke Exposure: CurrentSmokeless Tobacco: NeverAlcohol UseStandard Drinks/WeekCommentsNever0 (1 standard drink = 0.6 oz pure alcohol)caffeine: 2-3 cups per day coffeePHQ-2AnswerDate RecordedPatient Health Questionnaire-2 Score0 4CommentsNoSex and Gender InformationValueDate RecordedSex Assigned at BirthNot on fileLegal JtbBjxcxs42/15/2023 7:27 PM EDTGender Identity Not on fileSexual OrientationNot on filedocumented as of this encounter Progress Notes * Norah Aden RN - 04/15/2025 9:09 AM EST Monthly monitor, chart reviewed. FRANKY 01/14/25 05/09/24 CG, Norah, on pt HIPAA with pt in home, returns call to check writer salesperson. Check on current status, management of chronic conditions. Contact was made with Ortho office re: increased pain in bilat knees and request for gel injectionsat 04/26/25 Pt having more difficulty with ambulation and movement when CG not in home, d/t increased pain causing mobility limitations. Plan is if insurance does not approve before scheduled appt they will do the regular cortisone injections and then return in 30 days for the gel injections. She had an appt scheduled with Dr. Sanderson on 04/14 but had to cancel d/t having no help to assist in getting pt into car. Pt has had no issues with BS, numbers have been really good . No skin issues at this time. Denies any acute issues. Aware to call if any needs arise. documented in this encounter Plan of Treatment DateTypeDepartmentCare Team (Latest Contact Info)Tcsjflnzfly36/23/2025 10:45 AM ESTOffice Visit [facility] [address] [place] [phone] Toño Zambrano, [address] [place] [address] 05/09/2025 10:45 AM ESTOffice Visit [facility] [address] [place] [phone] Miguel Ángel Sanderson MD [address] [place] [address] 05/10/2025 10:30 AM ESTProcedure Visit [facility] [address] [place] [phone] Aquilino Davey DPM [address] [place] [address] 07/26/2025 10:30 AM EDTOffice Visit [facility] [address] [place] [address] Manuel Antoine MD [address] [place] [address] 03/20/2026 1:40 PM ESTOffice Visit [facility] [address] [place] [address] Lizet Mcgill, GERARDO [address] [place] [address] documented as of this encounter Visit Diagnoses [...] Ángel Sanderson MD [address] [place] [address] PCP - GeneralFamily Medicine10/01/22 Miguel Ángel Sanderson MD [address] [place] [address] PCP - [facility]07/04/23 Norah Aden, YADIEL [address] [place] [address] Registered NurseFamily Medicine10/09/23documented as of this encounter
[2025-04-21 16:57] LABS: INR 1.36; Prothrombin Time 14.0 sec (9.0-11.6)
--- NOTE | 2025-04-21 17:00 | ECG_ITS ---
[facility] Test Date: 2025-04-21 Pat Name: KENNY YAÑEZ Department: Room: - Gender: Female Inside Sales Administrator: : [id number] Requested By: [id number] Order Number: [id number] Key MD: RYAN ARMENDARIZ M.D. Measurements Intervals [place] Rate: 111 P: -[address] [place]: -[address] QRS: 157 QRSD: 72 T: 16 QT: 300 QTc: 366 Interpretive Statements JUNCTIONAL TACHYCARDIA INCOMPLETE RIGHT BUNDLE BRANCH BLOCK 3114 Cannot rule out anterior myocardial infarction, age undetermined 7300 Indeterminate axis 8102 Low QRS voltage in chest leads 9150 abnormal ECG Compared to ECG 04/21/2025 16:31:15 No significant changes Electronically Signed On 04-21-2025 18:16:28 EST by RYAN ARMENDARIZ M.D.
[2025-04-21 17:03] LABS: Alanine Aminotransferase 22 U/L (14-59); Albumin Globulin Ratio 0.9; Albumin Level 3.4 g/dL (3.4-5.0); Alkaline Phosphatase 91 U/L (46-116); Anion Gap 9.2; Aspartate Amino Transferase 13 U/L (15-37); Blood Urea Nitrogen 22.0 mg/dL (7.0-18.0); Calcium 9.4 mg/dL (8.5-10.1); Carbon Dioxide 29.9 mmol/L (21.0-32.0); Chloride 102 mmol/L (98-107); Estimated GFR (African America >60 (>=60 mL/min/1.73m^2); Estimated GFR (Non-African Ame 52 (>=60 mL/min/1.73m^2); Globulin 4.0 g/dL; Glucose 103 mg/dL (74-106); Potassium 4.1 mmol/L (3.5-5.1); Sodium 137 mmol/L (136-145); Total Protein 7.4 g/dL (6.4-8.2)
[2025-04-21 17:04] LABS: Lactate/Lactic Acid 3.1 mmol/L (0.4-2.0)
[2025-04-21 17:28] LABS: NT Pro B Type Natriuretic Pept 825.0 pg/mL (<=1800.0)
[2025-04-21 18:10] LABS: Glucose Urine UA NEGATIVE (NEGATIVE)
[2025-04-21 18:18] LABS: Cast Seen? NONE SEEN #/LPF (NONE SEEN); Crystals Seen? None Seen #/HPF (None Seen)
[2025-04-21 18:19] LABS: Urine Culture Indicated YES-FRMC
[2025-04-21] MEDS: FUROSEMIDE 20 MG/2 ML VIAL IVP (18:49)
[2025-04-21] MEDS: PIPERACILLIN SODIUM/TAZOBACTAM 4.5 GM in 0.9 % SODIUM CHLORIDE 50 ML IV (19:07)
[2025-04-21 21:16] LABS: Lactate/Lactic Acid 2.6 mmol/L (0.4-2.0)
--- NOTE | 2025-04-21 22:52 | ED.GENADUL1 ---
HPI HPI - General Adult General Chief complaint: Recheck/Abnormal Lab/Rx Stated complaint: VOMITING, LIGHT HEADED, 02 VERY LOW, RETAINING FLU Time Seen by Provider: 04/21/25 16:21 Source: patient Mode of arrival: walk-in Limitations: no limitations History of Present Illness HPI narrative: This 74-year-old female was awaiting transfer at shift change. She remains awake alert in emergency department. Repeat EKG shows undetermined rhythm at 84 bpm. This was compared to prior EKGs and is unchanged. She remains hemodynamically stable in the emergency department. Her lactic acid was repeated and was 2.6. Initial and delta troponin were both normal. Related Data Home Medications ?Medication ?Instructions ?Recorded ?Confirmed aspirin 81 mg capsule 81 mg PO DAILY 04/21/25 04/21/25 cholecalciferol (vitamin D3) 125 125 mcg PO DAILY 04/21/25 04/21/25 mcg (5,000 unit) capsule donepezil 10 mg tablet 10 mg PO .qhs 04/21/25 04/21/25 ferrous sulfate 325 mg (65 mg 325 mg PO DAILY 04/21/25 04/21/25 iron) tablet,delayed release losartan 100 1 tab PO DAILY 04/21/25 04/21/25 mg-hydrochlorothiazide 25 mg tablet mecobalamin-levomefolate 1 tab PO BID 04/21/25 04/21/25 calcium-pyridoxal phos 2 mg-3 mg-35 mg tablet metformin 500 mg tablet,extended 500 mg PO DAILY 04/21/25 04/21/25 release 24 hr omega 4-xyq-xkc-fish oil 1,000 mg 1 cap PO DAILY 04/21/25 04/21/25 (120 mg-180 mg) capsule (Fish Oil) polyethylene glycol 3350 17 8.5 g PO .3 times per week PRN 04/21/25 04/21/25 gram/dose oral powder (ClearLax) constipation rivaroxaban 20 mg tablet (Xarelto) 20 mg PO Q24H 04/21/25 04/21/25 vitamin B12 1,000 mcg-folic acid tab sublingual 04/21/25 400 mcg sublingual tablet Allergies Allergy/AdvReac Type Severity Reaction Status Date / Time acetaminophen (From Percocet) Allergy Intermediate Vomiting Verified 04/21/25 16:08 oxycodone (From Percocet) Allergy Intermediate Vomiting Verified 04/21/25 16:08 [facility] Medical History (Updated 04/21/25 @ 18:33 by Nelly Barton MD) Hyperlipidemia ?E78.5 - Hyperlipidemia, unspecified (ICD-10) Hypertension ?I10 - Essential (primary) hypertension (ICD-10) Hip replacement planned Surgical History (Updated 04/21/25 @ 16:14 by Yaz Martinez RN) History of bowel resection ?Z90.49 - Acquired absence of other specified parts of digestive tract (ICD-10) Social History Little interest or pleasure in doing things: not at all Feeling down, depressed, or hopeless: not at all Exam Constitutional Vital Signs, click to edit/add: Last Vital Signs Temp 98.7 F 04/21/25 16:08 Pulse 95 H 04/21/25 18:30 Resp 20 04/21/25 18:30 BP 151/74 H 04/21/25 16:31 Pulse Ox 96 04/21/25 18:30 O2 Del Method Room Air 04/21/25 16:08 Course Vital Signs Vital signs: Vital Signs Temperature 98.7 F 04/21/25 16:08 Pulse Rate 117 H 04/21/25 16:08 Respiratory Rate 18 04/21/25 16:08 Blood Pressure 133/71 04/21/25 16:08 Pulse Oximetry 97 04/21/25 16:08 Oxygen Delivery Method Room Air 04/21/25 16:08 Temperature 98.7 F 04/21/25 16:08 Pulse Rate 95 H 04/21/25 18:30 Respiratory Rate 20 04/21/25 18:30 Blood Pressure 151/74 H 04/21/25 16:31 Pulse Oximetry 96 04/21/25 18:30 Oxygen Delivery Method Room Air 04/21/25 16:08 Medical Decision Making Medical Records Medical records reviewed: Yes I reviewed the patient's medical records Lab Data Lab results reviewed: Yes I reviewed the patient's lab results Labs: Lab Results 04/21/25 04/21/25 04/21/25 Range/Units 16:32 18:05 18:43 WBC 14.5 H (4.0-11.0) 10^3/uL RBC 4.63 (4.20-5.40) 10^6/uL Hgb 14.2 (12.0-16.0) g/dL Hct 43.5 (36.0-48.0) % MCV 94.0 (81.0-99.0) fL MCH 30.7 (26.7-34.0) pg MCHC 32.6 (29.9-35.2) g/dL RDW 13.5 (11.0-15.0) % Plt Count 333 (150-450) 10^3/uL MPV 10.0 (9.5-13.5) fL Neut % (Auto) 76.0 H (43.0-75.0) % Lymph % (Auto) 13.1 L (20.5-60.0) % [place] % (Auto) 9.0 (1.7-12.0) % Eos % (Auto) 1.3 (0.9-7.0) % Baso % (Auto) 0.3 (0.2-2.0) % Neut # (Auto) 11.0 H (1.4-6.5) 10^3/uL Lymph # (Auto) 1.9 (1.2-3.8) 10^3/uL [place] # (Auto) 1.3 H (0.3-0.8) 10^3/uL Eos # (Auto) 0.2 (0.0-0.7) 10^3/uL Baso # (Auto) 0.1 (0.0-0.1) 10^3/uL Abs Immat Gran (auto) 0.05 H (0.00-0.03) 10^3/uL Imm/Tot Granulo (auto) 0.3 (0.0-0.5) % PT 14.0 H (9.0-11.6) sec INR 1.36 Sodium 137 (136-145) mmol/L Potassium 4.1 (3.5-5.1) mmol/L Chloride 102 (98-107) mmol/L Carbon Dioxide 29.9 (21.0-32.0) mmol/L Anion Gap 9.2 BUN 22.0 H (7.0-18.0) mg/dL Creatinine 1.03 H (0.55-1.02) mg/dL Est GFR ( Amer) >60 (>=60 mL/min/1.73m^2) Est GFR (Non-Af Amer) 52 L (>=60 mL/min/1.73m^2) BUN/Creatinine Ratio 21.4 Glucose 103 (74-106) mg/dL Lactate 3.1 H* (0.4-2.0) mmol/L Calcium 9.4 (8.5-10.1) mg/dL Magnesium 1.9 (1.8-2.4) mg/dL Total Bilirubin 0.3 (0.2-1.0) mg/dL AST 13 L (15-37) U/L ALT 22 (14-59) U/L Alkaline Phosphatase 91 (46-116) U/L Troponin I High Sens 15.6 18.3 (4.0-51.3) pg/mL NT-Pro-B Natriuret Pep 825.0 (<=1800.0) pg/mL Total Protein 7.4 (6.4-8.2) g/dL Albumin 3.4 (3.4-5.0) g/dL Globulin 4.0 g/dL Albumin/Globulin Ratio 0.9 Urine Color Lt. yellow (YELLOW) Urine Clarity Clear (CLEAR) Urine pH 6.0 (5.0-9.0) Ur Specific [place] 1.020 (1.005-1.025) Urine Protein Negative (NEG/TRACE) mg/dL Urine Glucose (UA) Negative (NEGATIVE) mg/dL Urine Ketones Negative (NEGATIVE) mg/dL Urine Occult Blood Small A (NEGATIVE) Urine Nitrite Positive A (NEGATIVE) Urine Bilirubin Negative (NEGATIVE) Urine Urobilinogen 0.2 (0.2-1.0) EU/dL Ur Leukocyte Esterase Small A (NEGATIVE) Urine RBC 0-2 (0-2) #/HPF Urine WBC 2-5 A (NONE SEEN) #/HPF Ur Squamous Epith Cells Few A (NONE/RARE) #/LPF Urine Crystals None seen (None Seen) #/HPF Urine Bacteria Moderate A (NONE SEEN) #/HPF Urine Casts None seen (NONE SEEN) #/LPF Urine Mucus None seen (NONE SEEN) Ur Culture Indicated? [place] [place] Range/Units 20:39 WBC (4.0-11.0) 10^3/uL RBC (4.20-5.40) 10^6/uL Hgb (12.0-16.0) g/dL Hct (36.0-48.0) % MCV (81.0-99.0) fL MCH (26.7-34.0) pg MCHC (29.9-35.2) g/dL RDW (11.0-15.0) % Plt Count (150-450) 10^3/uL MPV (9.5-13.5) fL Neut % (Auto) (43.0-75.0) % Lymph % (Auto) (20.5-60.0) % [place] % (Auto) (1.7-12.0) % Eos % (Auto) (0.9-7.0) % Baso % (Auto) (0.2-2.0) % Neut # (Auto) (1.4-6.5) 10^3/uL Lymph # (Auto) (1.2-3.8) 10^3/uL [place] # (Auto) (0.3-0.8) 10^3/uL Eos # (Auto) (0.0-0.7) 10^3/uL Baso # (Auto) (0.0-0.1) 10^3/uL Abs Immat Gran (auto) (0.00-0.03) 10^3/uL Imm/Tot Granulo (auto) (0.0-0.5) % PT (9.0-11.6) sec INR Sodium (136-145) mmol/L Potassium (3.5-5.1) mmol/L Chloride (98-107) mmol/L Carbon Dioxide (21.0-32.0) mmol/L Anion Gap BUN (7.0-18.0) mg/dL Creatinine (0.55-1.02) mg/dL Est GFR ( Amer) (>=60 mL/min/1.73m^2) Est GFR (Non-Af Amer) (>=60 mL/min/1.73m^2) BUN/Creatinine Ratio Glucose (74-106) mg/dL Lactate 2.6 H* (0.4-2.0) mmol/L Calcium (8.5-10.1) mg/dL Magnesium (1.8-2.4) mg/dL Total Bilirubin (0.2-1.0) mg/dL AST (15-37) U/L ALT (14-59) U/L Alkaline Phosphatase (46-116) U/L Troponin I High Sens (4.0-51.3) pg/mL NT-Pro-B Natriuret Pep (<=1800.0) pg/mL Total Protein (6.4-8.2) g/dL Albumin (3.4-5.0) g/dL Globulin g/dL Albumin/Globulin Ratio Urine Color (YELLOW) Urine Clarity (CLEAR) Urine pH (5.0-9.0) Ur Specific [place] (1.005-1.025) Urine Protein (NEG/TRACE) mg/dL Urine Glucose (UA) (NEGATIVE) mg/dL Urine Ketones (NEGATIVE) mg/dL Urine Occult Blood (NEGATIVE) Urine Nitrite (NEGATIVE) Urine Bilirubin (NEGATIVE) Urine Urobilinogen (0.2-1.0) EU/dL Ur Leukocyte Esterase (NEGATIVE) Urine RBC (0-2) #/HPF Urine WBC (NONE SEEN) #/HPF Ur Squamous Epith Cells (NONE/RARE) #/LPF Urine Crystals (None Seen) #/HPF Urine Bacteria (NONE SEEN) #/HPF Urine Casts (NONE SEEN) #/LPF Urine Mucus (NONE SEEN) Ur Culture Indicated? Discharge Plan Discharge Chief Complaint: Recheck/Abnormal Lab/Rx Clinical Impression: Acute CHF (congestive heart failure), Pulmonary edema, Dizziness, Acute electrocardiogram changes, Leg edema Patient Disposition: [facility] Time of Disposition Decision: 18:51 Discharge location: [facility] /Dr Hennessy
--- NOTE | 2025-04-21 22:56 | ECG_ITS ---
[facility] Test Date: 2025-04-21 Pat Name: KENNY YAÑEZ Department: Room: - Gender: Female Speedometer Inspector: : [id number] Requested By: [id number] Order Number: [id number] Reading MD: Measurements Intervals [place] Rate: 84 P: -[id number] [place]: -[id number] QRS: 203 QRSD: 82 T: 24 QT: 310 QTc: 351 Interpretive Statements 49944 Cannot rule out atrial flutter 1400 Undetermined rhythm (Possible supraventricular rhythm) 2420 RSR (QR) in lead V1/V2, consistent with right ventricular conduction delay 3134 Anterior myocardial infarction, age undetermined 3614 Cannot rule out inferior myocardial infarction, age undetermined 7300 Indeterminate axis 8102 Low QRS voltage in chest leads 8305 Short QTc interval 9150 abnormal ECG No previous ECG available for comparison
== END 2025-04-21 23:34 | disposition short-term general hospital (02) ==
PROVIDERS: Emergency Medicine; Emergency Provider Emergency Medicine; PCP Nurse Practitioner Family
DX: I50.9 Heart failure, unspecified (principal); R42 Dizziness and giddiness; R94.31 Abnormal electrocardiogram [ECG] [EKG]; I50.1 Left ventricular failure, unspecified; R82.998 Other abnormal findings in urine
CPT/HCPCS: 36415; 71045; 80053; 81001; 83605; 83735; 83880; 84484; 85025; 85610; 87040; 87086; 93005; 96365; 96375; 99285; J1938; J2543